=== PATIENT | female | born 1940 | race Two or more races ===

== ENCOUNTER 2022-03-15 21:38 | Inpatient (IN) | payer OTHER ==
[~2022-03-15] VITALS: Ht 152.4 cm; Wt 84.4 kg
[~2022-03-15 21:38] MED LIST: DOLOGEN CAPLET1 EACH PO
[2022-03-15] MEDS ORDERED: METFORMIN HCL500 M3 PO (21:54)
[2022-03-15] MEDS ORDERED: COZAAR100 MG PO (21:55)
[2022-03-15] MEDS ORDERED: NAMENDA10 MG PO (21:56)
[2022-03-15] MEDS ORDERED: GRALISE600 MG PO (21:56)
[2022-03-15] MEDS ORDERED: PLAVIX75 MG PO (21:56)
[2022-03-23] MEDS ORDERED: ALENDRONATE SOD70 MG (16:26)
[2022-03-23] MEDS ORDERED: ARIPIPRAZOLE2 MG (16:26)
[2022-03-23] MEDS ORDERED: AMLODIPINE BESYL5 MG (16:27)
[2022-03-23] MEDS ORDERED: RESTORIL30 MG (16:27)
[2022-03-23] MEDS ORDERED: SIMVASTATIN40 MG (16:27)
[2022-03-23] MEDS ORDERED: LAMOTRIGINE25 M1 (16:27)
[2022-03-23] MEDS ORDERED: CARBIDOPA-LEVO1 EA10 (16:27)
[2022-03-23] MEDS ORDERED: DONEPEZIL HCL23 MG (16:27)
[2022-03-23] MEDS ORDERED: CITALOPRAM HBR40 MG (16:27)
[2022-03-23] MEDS ORDERED: BUMETANIDE0.5 MG (16:27)
[2022-03-23] MEDS ORDERED: INSULIN GL100 UNIT/3 (16:28)
[2022-04-10] MEDS ORDERED: AMIODARONE HCL200 MG NGT (12:42)
[2022-04-10] MEDS ORDERED: BUMETANIDE0.5 MG PO (12:42)
[2022-04-10] MEDS ORDERED: ARIPIPRAZOLE2 MG PO (12:42)
[2022-04-10] MEDS ORDERED: SIMVASTATIN40 MG PO (12:42)
[2022-04-10] MEDS ORDERED: COZAAR100 MG PO (12:42)
[2022-04-10] MEDS ORDERED: ELIQUIS2.5 MG PO (12:42)
[2022-04-10] MEDS ORDERED: TOPROL XL25 M1 PO (12:42)
[2022-04-10] MEDS ORDERED: NASAL MIST126 ML NASAL (12:42)
[2022-04-10] MEDS ORDERED: HUMULIN N100 UNIT/2 SUBCUTANEO ×2 (12:42)
[2022-04-10] MEDS ORDERED: RESTORIL30 MG PO (12:42)
== END 2022-04-10 13:16 | disposition home or self-care (01) | DRG 208 ==
LOC: ER 21:38 → ICU 03-16 14:10 → SEC-K 03-16 14:10 → SURH 03-16 14:10 → ICU 03-20 22:16 → MEDJ 03-30 20:19
PROVIDERS: ADMIT Internal Medicine; ATTEND Internal Medicine
PROC: BW24ZZZ Computerized Tomography (CT Scan) of Chest and Abdomen (ICD-10-PCS; 2022-03-16)
PROC: XW033E5 Introduction of Remdesivir Anti-infective into Peripheral Vein, Percutaneous Approach, New Technology Group 5 (ICD-10-PCS; 2022-03-17)
PROC: 02HV33Z Insertion of Infusion Device into Superior Vena Cava, Percutaneous Approach (ICD-10-PCS; 2022-03-17)
PROC: 5A1945Z Respiratory Ventilation, 24-96 Consecutive Hours (ICD-10-PCS; principal; 2022-03-19)
PROC: 0BH17EZ Insertion of Endotracheal Airway into Trachea, Via Natural or Artificial Opening (ICD-10-PCS; 2022-03-19)
PROC: B24BZZZ Ultrasonography of Heart with Aorta (ICD-10-PCS; 2022-03-19)
PROC: 4A12X4Z Monitoring of Cardiac Electrical Activity, External Approach (ICD-10-PCS; 2022-03-19)
PROC: 30233N1 Transfusion of Nonautologous Red Blood Cells into Peripheral Vein, Percutaneous Approach (ICD-10-PCS; 2022-03-20)
PROC: 0DH64UZ Insertion of Feeding Device into Stomach, Percutaneous Endoscopic Approach (ICD-10-PCS; 2022-04-07)
DX: U07.1 COVID-19 (principal); J15.0 Pneumonia due to Klebsiella pneumoniae; J96.00 Acute respiratory failure, unspecified whether with hypoxia or hypercapnia; J69.0 Pneumonitis due to inhalation of food and vomit; N39.0 Urinary tract infection, site not specified; I50.20 Unspecified systolic (congestive) heart failure; E46 Unspecified protein-calorie malnutrition; B96.1 Klebsiella pneumoniae [K. pneumoniae] as the cause of diseases classified elsewhere; M24.412 Recurrent dislocation, left shoulder; R13.19 Other dysphagia; Z74.01 Bed confinement status; Z79.4 Long term (current) use of insulin; G30.8 Other Alzheimer's disease; F02.80 Dementia in other diseases classified elsewhere, unspecified severity, without behavioral disturbance, psychotic disturbance, mood disturbance, and anxiety; I48.91 Unspecified atrial fibrillation; I11.0 Hypertensive heart disease with heart failure; D64.9 Anemia, unspecified; E11.65 Type 2 diabetes mellitus with hyperglycemia; G20 Parkinson's disease

== ENCOUNTER 2022-05-09 11:08 | Inpatient (IN) | payer OTHER ==
[~2022-05-09] VITALS: Ht 152.4 cm; Wt 72.6 kg
[~2022-05-09 11:08] MED LIST changes: +ALENDRONATE SOD70 MG; +AMIODARONE HCL200 MG NGT; +AMLODIPINE BESYL5 MG; +ARIPIPRAZOLE2 MG; +ARIPIPRAZOLE2 MG PO; +BUMETANIDE0.5 MG; +BUMETANIDE0.5 MG PO; +CARBIDOPA-LEVO1 EA10; +CITALOPRAM HBR40 MG; +COZAAR100 MG PO; +DONEPEZIL HCL23 MG; +ELIQUIS2.5 MG PO; +GRALISE600 MG PO; +HUMULIN N100 UNIT/2 SUBCUTANEO; +INSULIN GL100 UNIT/3; +LAMOTRIGINE25 M1; +METFORMIN HCL500 M3 PO; +NAMENDA10 MG PO; +NASAL MIST126 ML NASAL; +PLAVIX75 MG PO; +RESTORIL30 MG; +RESTORIL30 MG PO; +SIMVASTATIN40 MG; +SIMVASTATIN40 MG PO; +TOPROL XL25 M1 PO
== END 2022-05-14 21:42 | disposition home or self-care (01) | DRG 690 ==
LOC: ER 11:08 → MEDI 19:24 → MEDJ 19:24 → MEDI 05-10 00:44 → MEDJ 05-11 09:44
PROVIDERS: ADMIT Internal Medicine; ATTEND Internal Medicine
PROC: 02HV33Z Insertion of Infusion Device into Superior Vena Cava, Percutaneous Approach (ICD-10-PCS; 2022-05-10)
PROC: 0DH63UZ Insertion of Feeding Device into Stomach, Percutaneous Approach (ICD-10-PCS; principal; 2022-05-12)
DX: N39.0 Urinary tract infection, site not specified (principal); K94.23 Gastrostomy malfunction; I50.20 Unspecified systolic (congestive) heart failure; E46 Unspecified protein-calorie malnutrition; T83.511A Infection and inflammatory reaction due to indwelling urethral catheter, initial encounter; B96.89 Other specified bacterial agents as the cause of diseases classified elsewhere; E87.6 Hypokalemia; R13.19 Other dysphagia; I48.91 Unspecified atrial fibrillation; D64.9 Anemia, unspecified; Z74.01 Bed confinement status; G30.9 Alzheimer's disease, unspecified; F02.80 Dementia in other diseases classified elsewhere, unspecified severity, without behavioral disturbance, psychotic disturbance, mood disturbance, and anxiety; I11.0 Hypertensive heart disease with heart failure; Z20.822 Contact with and (suspected) exposure to COVID-19

== ENCOUNTER 2022-07-26 21:37 | Inpatient (IN) | payer OTHER ==
[~2022-07-26] VITALS: Ht 152.4 cm; Wt 84.4 kg
[2022-07-26] MEDS ORDERED: NAMENDA XR28 MG PO (21:59)
[2022-07-26] MEDS ORDERED: CELEXA40 MG PO (21:59)
[2022-07-26] MEDS ORDERED: SINEMET 25-1001 EACH PO (21:59)
[2022-07-26] MEDS ORDERED: BUMETANIDE0.5 MG PO (22:00)
[2022-07-26] MEDS ORDERED: ARIPIPRAZOLE2 MG PO (22:01)
[2022-07-26] MEDS ORDERED: KEPPRA500 MG (22:01)
[2022-07-26] MEDS ORDERED: HUMULIN N100 UNIT/2 (22:02)
--- NOTE | 2022-07-26 22:04 | NUR ---
PTE LETARGICA EN AMBULANCIA EN COMPANIA DE FAMILIAR. FAMILOIAR REFIERE INFECCION DE ORINA. PTE CANALIZADA EN AMBULANCIA Y CON TIM DE GOPAL SE ONSERVA 300CC DE [place] TURBIO. SE MIDEN S/V Y SE UBICA.
--- NOTE | 2022-07-27 00:59 | NUR ---
PTE EVALUADO POR DR. CALZADA SE EJECUTA ORDEN MEDICA SE SARAH MUESTRA BAJO MEDIDAS ASEPTICAS Y SE CANLIZA ANGIO #22 SE OBSERVA VEE EDEMAS Y ENROJECIMIENTO. SE OREINTA PTE/FAMILIAR REFIEREN ENTENDER
--- NOTE | 2022-07-27 01:33 | NUR ---
SE SUCCIONA PTE ELIMINADO SECRESIONES, SE OBSERVA PTE RESPIRANDO MEJOR.
--- NOTE | 2022-07-27 06:36 | NUR ---
PTE ALERTA CON RESPUESTA A DOLOR EN CAMA CON BARANDAS ELEBADAS POR SEGURIDAD EN COMPANIA DE FAMILIAR. CONECTADA A MONITOR CARDIACO CON CANULA NASAL A 3L POR MINUTO. FAMILIAR REFIERE PTE TIENE HOMBRO MARAL DISLOCADO DESDE FEBRERO. SE OBSERVA EDEMA EN EXTREMIDADES SUPERIORES E INFERIORES. TIENE SONDA URINARIA A GRABEDAD DEL HOGAR CON EGRESO DE 600 ML. PTE CON PEG CON BENDAJE LIMPIO Y SECO. SE OBSERVA ULCERA EN PIE IZQ CON PARCHO Y FISTULA EN AMARA. PTE EN ESPERA DE CONSULTA DE DR CHAN.
--- NOTE | 2022-07-27 07:07 | NUR ---
SE RECIBE PTE FEMINA EN COMPANIA DE SUHIJA, DURMIENDO AL MOMENTO, SE OBSERVA CON BUEN PATRON RESPIRATORIO. SE REALIZA WILL DE S/V Y SE ORIENTA A FAMILIAR SOBRE PROCESO A SEGUIR. PTE PENDIENTE A CONSULTA.
--- NOTE | 2022-07-27 15:00 | NUR ---
SE RECIBE PACIENTE LETARGICA EN CAMA CON BARANDAS ELEVADAS POR SEGURIDAD EN COMPANIA DE CUIDADOR. CONECTADA A MONITOR CARDIACO, OXIMETRIA DE PULSO Y ASISTIDA POR SARAH CANULA NASAL A 2TLS. RECIBIENDO IV'S 0.9NSS BAJANDO A 50ML/HR POR VENOPUNCION EN BRAZO DERECHO AREA VEE DE EDEMA Y ERITEMA. SONDA URINARIA DRENANDO A GRAVEDAD 500ML DE ORINA COLOR AMARILLO INTENSO CONECTADO A IRRIGACION CONTINUA EL CUAL PACIENTE TIENE DESDE RODAS HOGAR. SE OBSERVA VENDAJE EN ROCIO MANZANARES. PENDIENTE CONSULTA CON DR.ESTEBAN OSORIO. SE EDUCA A CUIDADORA SOBRE CONTINUIDA DE [place] MEDICO, REFIERE COMPRENDER. SE MANTIENE EN OBSERVACION POR CAMBIOS EN CONDICION MEDICA.
[2022-07-29] MEDS ORDERED: LOSARTAN POTAS100 MG (15:32)
[2022-07-29] MEDS ORDERED: RESTORIL30 MG (15:33)
[2022-07-29] MEDS ORDERED: SIMVASTATIN40 MG (15:33)
[2022-07-29] MEDS ORDERED: ALENDRONATE SOD70 MG (15:33)
[2022-07-29] MEDS ORDERED: AMLODIPINE BESYL5 MG (15:33)
[2022-07-29] MEDS ORDERED: DONEPEZIL HCL23 MG (15:33)
[2022-07-29] MEDS ORDERED: LAMOTRIGINE25 M1 (15:34)
== END 2022-08-06 19:31 | disposition home or self-care (01) | DRG 193 ==
LOC: ER 21:37 → ICU-2 07-27 17:39 → SEC-K 07-29 10:03 → MEDJ 07-29 10:16 → MEDI 07-29 11:02
PROVIDERS: ADMIT Internal Medicine; ATTEND Internal Medicine
PROC: BB24ZZZ Computerized Tomography (CT Scan) of Bilateral Lungs (ICD-10-PCS; principal; 2022-07-27)
PROC: B246ZZZ Ultrasonography of Right and Left Heart (ICD-10-PCS; 2022-07-27)
PROC: 3E0F7SF Introduction of Other Gas into Respiratory Tract, Via Natural or Artificial Opening (ICD-10-PCS; 2022-07-27)
PROC: 4A12X4Z Monitoring of Cardiac Electrical Activity, External Approach (ICD-10-PCS; 2022-07-27)
PROC: 3E0F7GC Introduction of Other Therapeutic Substance into Respiratory Tract, Via Natural or Artificial Opening (ICD-10-PCS; 2022-07-27)
PROC: 02HV33Z Insertion of Infusion Device into Superior Vena Cava, Percutaneous Approach (ICD-10-PCS; 2022-07-28)
PROC: 8E0ZXY6 Isolation (ICD-10-PCS; 2022-07-30)
PROC: 0DH63UZ Insertion of Feeding Device into Stomach, Percutaneous Approach (ICD-10-PCS; 2022-08-04)
DX: J18.8 Other pneumonia, unspecified organism (principal); I21.A1 Myocardial infarction type 2; L89.623 Pressure ulcer of left heel, stage 3; I50.33 Acute on chronic diastolic (congestive) heart failure; B37.49 Other urogenital candidiasis; J91.8 Pleural effusion in other conditions classified elsewhere; I31.39 Other pericardial effusion (noninflammatory); E87.1 Hypo-osmolality and hyponatremia; E46 Unspecified protein-calorie malnutrition; K94.23 Gastrostomy malfunction; I48.0 Paroxysmal atrial fibrillation; R50.9 Fever, unspecified; I11.0 Hypertensive heart disease with heart failure; E11.65 Type 2 diabetes mellitus with hyperglycemia; I27.20 Pulmonary hypertension, unspecified; L89.620 Pressure ulcer of left heel, unstageable; D64.89 Other specified anemias; E87.6 Hypokalemia; G30.8 Other Alzheimer's disease; F02.80 Dementia in other diseases classified elsewhere, unspecified severity, without behavioral disturbance, psychotic disturbance, mood disturbance, and anxiety; R13.19 Other dysphagia; Z74.01 Bed confinement status; Z88.6 Allergy status to analgesic agent; Z79.4 Long term (current) use of insulin; Z79.01 Long term (current) use of anticoagulants; L08.89 Other specified local infections of the skin and subcutaneous tissue; B96.5 Pseudomonas (aeruginosa) (mallei) (pseudomallei) as the cause of diseases classified elsewhere; B95.2 Enterococcus as the cause of diseases classified elsewhere; B96.89 Other specified bacterial agents as the cause of diseases classified elsewhere

== ENCOUNTER 2022-08-25 13:05 | Emergency (ER) | payer OTHER ==
[~2022-08-25] VITALS: Ht 167.6 cm; Wt 84.4 kg
[~2022-08-25 13:05] MED LIST changes: +CELEXA40 MG PO; +HUMULIN N100 UNIT/2; +KEPPRA500 MG; +LOSARTAN POTAS100 MG; +NAMENDA XR28 MG PO; +SINEMET 25-1001 EACH PO
== END 2022-08-26 00:28 | disposition home or self-care (01) ==
LOC: ER 13:05
DX: K94.23 Gastrostomy malfunction (principal); Z88.6 Allergy status to analgesic agent; K59.00 Constipation, unspecified

== ENCOUNTER 2022-09-24 11:29 | Emergency (ER) | payer OTHER ==
[~2022-09-24] VITALS: Ht 165.1 cm; Wt 84.4 kg
== END 2022-09-24 20:45 | disposition home or self-care (01) ==
LOC: ER 11:29
DX: K94.23 Gastrostomy malfunction (principal); I10 Essential (primary) hypertension; Z88.6 Allergy status to analgesic agent

== ENCOUNTER 2023-04-12 20:59 | Inpatient (IN) | payer OTHER ==
[~2023-04-12] VITALS: Ht 152.4 cm; Wt 113.4 kg
[2023-04-12] MEDS ORDERED: NOREPINEPHRINE BITARTRATE 4 MG in DEXTROSE 5 % IN WATER 250 ML IV SCH (21:15)
[2023-04-12] MEDS ORDERED: TOPROL XL25 M1 PO (21:22)
[2023-04-12] MEDS ORDERED: ELIQUIS2.5 MG PO (21:22)
[2023-04-12] MEDS ORDERED: AMIODARONE HCL100 MG PO (21:23)
[2023-04-12] MEDS ORDERED: BUMETANIDE0.25 MG/1 (21:24)
[2023-04-12] MEDS ORDERED: KEPPRA100 MG/1 M PO (21:25)
[2023-04-12] MEDS ORDERED: SIMVASTATIN5 MG PO (21:25)
[2023-04-12] MEDS ORDERED: ARICEPT5 MG PO (21:26)
[2023-04-12] MEDS ORDERED: 0.9 % SODIUM CHLORIDE 1,000 ML IV SCH (21:30)
[2023-04-12] MEDS ORDERED: CEFTRIAXONE SODIUM 1,000 MG VIAL IV ONE (21:30)
[2023-04-12 22:04] LABS: HEMATOCRIT 34.6 % (36.0-45.00); HEMOGLOBIN 11.4 g/dL (12.0-15.00); MEAN CELL VOLUME 85.5 fL (80.00-100.00); MEAN CORPUSCULAR HEMOGLOBIN 28.1 pg (27.00-32.0); MEAN CORPUSCULAR HGB CONC 32.9 g/dl (32.0-36.0); PLATELET COUNT 168 K/uL (150-450); RED BLOOD COUNT 4.05 M/uL (4.00-6.00)
[2023-04-12 22:07] LABS: PH,URINE 5.5 (5.0-8.0); URINE APPEARANCE Cloudy; URINE BILIRRUBIN Negative (NEGATIVE); URINE BLOOD Trace; URINE COLOR Yellow; URINE GLUCOSE Negative (NEGATIVE); URINE LEUKOCYTE Large; URINE NITRATE Negative; URINE PROTEIN Negative (NEGATIVE); URINE UROBILINOGEN 0.2 E.U./dl
[2023-04-12 22:08] LABS: URINE WBC 1129.2 uL (0.0-23.2)
[2023-04-12 22:13] LABS: URINE BACTERIA > 9821.5 uL (0.0-1933); URINE EPITHELIAL CELLS 0.6 uL (0.0-38.8)
[2023-04-12 22:17] LABS: INR 1.29; PARTIAL THROMBOPLASTIN TIME 32.4 SECONDS (22.0-34.0); PROTHROMBIN TIME 13.3 SECONDS (9.0-11.5)
[2023-04-12 22:46] LABS: CALCIUM 9.6 mg/dL (8.5-10.1); CREATININE SERUM 0.69 mg/dL (0.55-1.02); GFR 81.05; POTASSIUM 3.94 mEq/L (3.5-5.1)
[2023-04-12 22:50] LABS: DIGOXIN 0.1 ng/ml (0.8-2.0)
[2023-04-13] MEDS ORDERED: CEFTRIAXONE SODIUM 2,000 MG in DEXTROSE 5 % IN WATER 100 ML IV SCH (11:50)
[2023-04-13] MEDS ORDERED: APIXABAN 2.5 MG TABLET PO SCH (11:51)
[2023-04-13] MEDS ORDERED: CARBIDOPA/LEVODOPA 25/100 UDTAB NGT SCH (11:52)
[2023-04-13] MEDS ORDERED: GABAPENTIN 600 MG TABLET PO SCH (11:53)
[2023-04-13] MEDS ORDERED: AMLODIPINE BESYLATE 5 MG TABLET PO SCH (11:53)
[2023-04-13] MEDS ORDERED: BUMETANIDE 0.5 MG TABLET PO SCH (11:54)
[2023-04-13] MEDS ORDERED: METOPROLOL SUCCINATE 25 MG TAB.SR.24H PO SCH (11:55)
[2023-04-13] MEDS ORDERED: SIMVASTATIN 40 MG TABLET PO SCH (11:56)
[2023-04-13] MEDS ORDERED: FAMOTIDINE/PF 20 MG in 0.9 % SODIUM CHLORIDE 8 ML IV PUSH SCH (11:58)
[2023-04-13] MEDS ORDERED: DEXTROSE 50 % IN WATER 0.5 G/ML DISP.SYRIN IV PRN (12:00)
[2023-04-13] MEDS ORDERED: INSULIN LISPRO 1,000 UNIT/10 ML UNITS SUBCUTANEO PRN (12:00)
[2023-04-13 13:19] LABS: CKMB 5.6 NG/ML (0.5-3.6)
[2023-04-13] MEDS ORDERED: MEROPENEM 500 MG/VIAL VIAL IV SCH (14:08)
[2023-04-13] MEDS ORDERED: TEMAZEPAM 15 MG CAPSULE PO SCH (21:00)
[2023-04-13 21:19] LABS: CKMB 7.3 NG/ML (0.5-3.6)
[2023-04-14 05:06] LABS: HEMATOCRIT 34.9 % (36.0-45.00); HEMOGLOBIN 11.2 g/dL (12.0-15.00); MEAN CELL VOLUME 85.3 fL (80.00-100.00); MEAN CORPUSCULAR HEMOGLOBIN 27.5 pg (27.00-32.0); MEAN CORPUSCULAR HGB CONC 32.2 g/dl (32.0-36.0); PLATELET COUNT 179 K/uL (150-450); RED BLOOD COUNT 4.09 M/uL (4.00-6.00)
[2023-04-14 05:10] LABS: ERYTHROCYTE SEDIMENTATION RATE 67 mm/hr
[2023-04-14 05:20] LABS: CKMB 7.4 NG/ML (0.5-3.6)
[2023-04-14 05:35] LABS: ALBUMIN 2.6 gm/dL (3.4-5.0); BILIRUBIN TOTAL 0.43 mg/dL (0.3-1.2); C-REACTIVE PROTEIN 5.53 MG/DL (0.00-0.29); CALCIUM 9.6 mg/dL (8.5-10.1); CHOL HDL RATIO 1.9 (0-5.0); CREATININE SERUM 0.66 mg/dL (0.55-1.02); GFR 85.32; GLOBULINA 3.9 G/DL (2.4-3.5); MAGNESIUM 1.9 mg/dL (1.8-2.4); PHOSPHOROUS 2.8 mg/dL (2.5-4.9); POTASSIUM 3.3 mEq/L (3.5-5.1); TOTAL PROTEIN 6.5 gm/dL (6.4-8.2)
[2023-04-14] MEDS ORDERED: POTASSIUM CHLORIDE 20MEQ/100ML H2O PB IV ONE (09:45)
[2023-04-14] MEDS ORDERED: LevETIRAcetam 500 MG/5 ML VIAL IV SCH (10:17)
[2023-04-14] MEDS ORDERED: TEMAZEPAM 15 MG CAPSULE PO SCH (21:00)
[2023-04-15 06:32] LABS: HEMATOCRIT 33.8 % (36.0-45.00); HEMOGLOBIN 11.2 g/dL (12.0-15.00); MEAN CELL VOLUME 84.5 fL (80.00-100.00); MEAN CORPUSCULAR HEMOGLOBIN 27.9 pg (27.00-32.0); MEAN CORPUSCULAR HGB CONC 33.1 g/dl (32.0-36.0); PLATELET COUNT 189 K/uL (150-450); RED CELL DISTRIBUTION WIDTH 15.3 % (11.5-14.5)
[2023-04-15 07:14] LABS: ALBUMIN 2.8 gm/dL (3.4-5.0); BILIRUBIN TOTAL 0.53 mg/dL (0.3-1.2); CALCIUM 9.5 mg/dL (8.5-10.1); CREATININE SERUM 0.62 mg/dL (0.55-1.02); GFR 91.7; GLOBULINA 3.8 G/DL (2.4-3.5); MAGNESIUM 2.2 mg/dL (1.8-2.4); PHOSPHOROUS 2.9 mg/dL (2.5-4.9); POTASSIUM 3.35 mEq/L (3.5-5.1); TOTAL PROTEIN 6.6 gm/dL (6.4-8.2)
[2023-04-15] MEDS ORDERED: CIPROFLOXACIN IN 5 % DEXTROSE 400 MG/200 ML PIGGYBAG IV SCH (21:00)
[2023-04-16 07:33] LABS: HEMATOCRIT 29.5 % (36.0-45.00); HEMOGLOBIN 9.7 g/dL (12.0-15.00); MEAN CORPUSCULAR HEMOGLOBIN 28.1 pg (27.00-32.0); MEAN CORPUSCULAR HGB CONC 33.1 g/dl (32.0-36.0); PLATELET COUNT 153 K/uL (150-450); RED BLOOD COUNT 3.47 M/uL (4.00-6.00); RED CELL DISTRIBUTION WIDTH 15.4 % (11.5-14.5)
[2023-04-16 07:37] LABS: ALBUMIN 2.2 gm/dL (3.4-5.0); BILIRUBIN TOTAL 0.47 mg/dL (0.3-1.2); CALCIUM 8.6 mg/dL (8.5-10.1); CREATININE SERUM 0.63 mg/dL (0.55-1.02); GFR 90.03; GLOBULINA 3.1 G/DL (2.4-3.5); TOTAL PROTEIN 5.3 gm/dL (6.4-8.2)
[2023-04-16 08:45] LABS: POTASSIUM 2.97 mEq/L (3.5-5.1)
[2023-04-17] MEDS ORDERED: POTASSIUM CHLORIDE IN WATER 100 ML IV SCH (01:00)
[2023-04-17 07:30] LABS: ALBUMIN 2.1 gm/dL (3.4-5.0); CALCIUM 8.3 mg/dL (8.5-10.1); CREATININE SERUM 0.44 mg/dL (0.55-1.02); GFR 136.23; POTASSIUM 3.51 mEq/L (3.5-5.1)
[2023-04-17 07:59] LABS: PHOSPHOROUS 1.4 mg/dL (2.5-4.9)
[2023-04-17] MEDS ORDERED: POTASSIUM PHOS,M-BASIC-D-BASIC 3 MM/ML VIAL IV SCH ×2 (13:00→18:00)
[2023-04-18] MEDS ORDERED: SODIUM CHLORIDE 0.45 % 1,000 ML IV SCH (06:15)
[2023-04-18 06:24] LABS: URINE APPEARANCE Clear; URINE BILIRRUBIN Negative (NEGATIVE); URINE BLOOD Negative; URINE COLOR Yellow; URINE GLUCOSE Negative (NEGATIVE); URINE LEUKOCYTE Negative; URINE NITRATE Negative; URINE PROTEIN Negative (NEGATIVE); URINE UROBILINOGEN 0.2 E.U./dl
[2023-04-18 06:28] LABS: URINE RBC 13.3 uL (0.0-20.8); URINE WBC 3.7 uL (0.0-23.2)
[2023-04-18 06:32] LABS: URINE BACTERIA 0 uL (0.0-1933)
[2023-04-18 07:03] LABS: ALBUMIN 2.1 gm/dL (3.4-5.0); BILIRUBIN TOTAL 0.59 mg/dL (0.3-1.2); CREATININE SERUM 0.46 mg/dL (0.55-1.02); GFR 129.42; MAGNESIUM 1.8 mg/dL (1.8-2.4); POTASSIUM 3.65 mEq/L (3.5-5.1); TOTAL PROTEIN 5.1 gm/dL (6.4-8.2)
[2023-04-19 05:17] LABS: HEMATOCRIT 32.1 % (36.0-45.00); MEAN CELL VOLUME 84.1 fL (80.00-100.00); MEAN CORPUSCULAR HGB CONC 32.8 g/dl (32.0-36.0); RED BLOOD COUNT 3.81 M/uL (4.00-6.00); RED CELL DISTRIBUTION WIDTH 15.2 % (11.5-14.5)
[2023-04-19 05:25] LABS: HEMOGLOBIN 10.5 g/dL (12.0-15.00); MEAN CORPUSCULAR HEMOGLOBIN 27.5 pg (27.00-32.0); PLATELET COUNT 118 K/uL (150-450)
[2023-04-19] MEDS ORDERED: POTASSIUM PHOS,M-BASIC-D-BASIC 45mM/15ml VIAL IV SCH (12:00)
[2023-04-19 12:48] LABS: ALBUMIN 2.1 gm/dL (3.4-5.0); BILIRUBIN TOTAL 0.84 mg/dL (0.3-1.2); CALCIUM 8.1 mg/dL (8.5-10.1); CREATININE SERUM 0.36 mg/dL (0.55-1.02); GFR 171.73; GLOBULINA 3.3 G/DL (2.4-3.5); POTASSIUM 3.8 mEq/L (3.5-5.1); TOTAL PROTEIN 5.4 gm/dL (6.4-8.2)
[2023-04-19 13:18] LABS: PHOSPHOROUS 1.3 mg/dL (2.5-4.9)
[2023-04-19] MEDS ORDERED: MEROPENEM 500 MG/VIAL VIAL IV SCH (17:00)
[2023-04-19 23:17] LABS: URINE APPEARANCE Clear; URINE BILIRRUBIN Negative (NEGATIVE); URINE BLOOD NHT; URINE COLOR Yellow; URINE GLUCOSE Negative (NEGATIVE); URINE LEUKOCYTE Trace; URINE NITRATE Negative; URINE PROTEIN 30 (NEGATIVE)
[2023-04-19 23:20] LABS: URINE BACTERIA 11.3 uL (0.0-1933); URINE EPITHELIAL CELLS 8.1 uL (0.0-38.8); URINE RBC 54.3 uL (0.0-20.8); URINE WBC 34.7 uL (0.0-23.2)
[2023-04-20 06:10] LABS: HEMATOCRIT 28.7 % (36.0-45.00); HEMOGLOBIN 9.4 g/dL (12.0-15.00); MEAN CELL VOLUME 84.7 fL (80.00-100.00); MEAN CORPUSCULAR HEMOGLOBIN 27.8 pg (27.00-32.0); MEAN CORPUSCULAR HGB CONC 32.8 g/dl (32.0-36.0); RED BLOOD COUNT 3.39 M/uL (4.00-6.00); RED CELL DISTRIBUTION WIDTH 15.1 % (11.5-14.5)
[2023-04-20 06:26] LABS: PLATELET COUNT 111 K/uL (150-450)
[2023-04-20 07:05] LABS: ALBUMIN 1.7 gm/dL (3.4-5.0); BILIRUBIN TOTAL 0.7 mg/dL (0.3-1.2); CALCIUM 7.7 mg/dL (8.5-10.1); CREATININE SERUM 0.4 mg/dL (0.55-1.02); GFR 152.07; GLOBULINA 2.8 G/DL (2.4-3.5); MAGNESIUM 1.8 mg/dL (1.8-2.4); POTASSIUM 3.75 mEq/L (3.5-5.1); TOTAL PROTEIN 4.5 gm/dL (6.4-8.2)
[2023-04-20 08:13] LABS: PHOSPHOROUS 1.9 mg/dL (2.5-4.9)
[2023-04-20] MEDS ORDERED: POTASSIUM PHOS,M-BASIC-D-BASIC 45mM/15ml VIAL IV SCH (13:00)
[2023-04-20] MEDS ORDERED: VANCOMYCIN HCL 1,000 MG VIAL IV SCH (17:00)
[2023-04-22] MEDS ORDERED: TEMAZEPAM 15 MG CAPSULE PO SCH (21:00)
[2023-04-23 15:34] LABS: HEMATOCRIT 28.3 % (36.0-45.00); HEMOGLOBIN 9.3 g/dL (12.0-15.00); MEAN CELL VOLUME 85.1 fL (80.00-100.00); MEAN CORPUSCULAR HEMOGLOBIN 28.1 pg (27.00-32.0); RED BLOOD COUNT 3.33 M/uL (4.00-6.00); RED CELL DISTRIBUTION WIDTH 15.2 % (11.5-14.5)
[2023-04-23 15:41] LABS: PLATELET COUNT 101 K/uL (150-450)
[2023-04-23 16:09] LABS: ALBUMIN 1.7 gm/dL (3.4-5.0); BILIRUBIN TOTAL 0.68 mg/dL (0.3-1.2); CALCIUM 8.2 mg/dL (8.5-10.1); CREATININE SERUM 0.3 mg/dL (0.55-1.02); GFR 211.94; GLOBULINA 3.2 G/DL (2.4-3.5); MAGNESIUM 1.8 mg/dL (1.8-2.4); PHOSPHOROUS 2.4 mg/dL (2.5-4.9); TOTAL PROTEIN 4.9 gm/dL (6.4-8.2)
[2023-04-23 16:22] LABS: C-REACTIVE PROTEIN 13.2 MG/DL (0.00-0.29); POTASSIUM 4.39 mEq/L (3.5-5.1)
[2023-04-25 07:00] LABS: HEMATOCRIT 27.4 % (36.0-45.00); HEMOGLOBIN 9.2 g/dL (12.0-15.00); MEAN CELL VOLUME 82.7 fL (80.00-100.00); MEAN CORPUSCULAR HEMOGLOBIN 27.7 pg (27.00-32.0); MEAN CORPUSCULAR HGB CONC 33.5 g/dl (32.0-36.0); PLATELET COUNT 184 K/uL (150-450); RED BLOOD COUNT 3.31 M/uL (4.00-6.00); RED CELL DISTRIBUTION WIDTH 14.2 % (11.5-14.5)
[2023-04-25 07:11] LABS: ALBUMIN 1.6 gm/dL (3.4-5.0); BILIRUBIN TOTAL 0.49 mg/dL (0.3-1.2); CALCIUM 8.3 mg/dL (8.5-10.1); CREATININE SERUM 0.33 mg/dL (0.55-1.02); GFR 189.86; GLOBULINA 3.4 G/DL (2.4-3.5); PHOSPHOROUS 2.2 mg/dL (2.5-4.9); POTASSIUM 4.07 mEq/L (3.5-5.1)
[2023-04-25] MEDS ORDERED: POTASSIUM PHOS,M-BASIC-D-BASIC 18 MM in 0.9 % SODIUM CHLORIDE 250 ML IV ONE (12:00)
[2023-04-26 06:55] LABS: ALBUMIN 1.5 gm/dL (3.4-5.0); BILIRUBIN TOTAL 0.5 mg/dL (0.3-1.2); CALCIUM 8.4 mg/dL (8.5-10.1); GLOBULINA 3.3 G/DL (2.4-3.5); MAGNESIUM 1.6 mg/dL (1.8-2.4); PHOSPHOROUS 2.9 mg/dL (2.5-4.9); POTASSIUM 4.03 mEq/L (3.5-5.1); TOTAL PROTEIN 4.8 gm/dL (6.4-8.2)
[2023-04-26 06:58] LABS: C-REACTIVE PROTEIN 13.6 MG/DL (0.00-0.29); CREATININE SERUM 0.29 mg/dL (0.55-1.02); FERRITIN 368.6 NG/ML (8-252); GFR 220.39
[2023-04-26 08:21] LABS: PROCALCITONIN 0.221 ng/ml (0.020-0.080)
[2023-04-26] MEDS ORDERED: MAGNESIUM SULFATE 1,000 MG in 0.9 % SODIUM CHLORIDE 50 ML IV ONE (10:15)
[2023-04-26 14:29] LABS: HEMATOCRIT 29.3 % (36.0-45.00); HEMOGLOBIN 9.6 g/dL (12.0-15.00); MEAN CELL VOLUME 84.7 fL (80.00-100.00); MEAN CORPUSCULAR HEMOGLOBIN 27.9 pg (27.00-32.0); PLATELET COUNT 187 K/uL (150-450); RED BLOOD COUNT 3.45 M/uL (4.00-6.00); RED CELL DISTRIBUTION WIDTH 14.6 % (11.5-14.5)
[2023-04-26] MEDS ORDERED: AMINO ACIDS/PROTEIN HYDROLYS 30 ML BLIST.PACK NGT SCH (20:13)
[2023-04-27 10:11] LABS: CA 125 78.8 U/mL (0.0-38.1)
[2023-04-27] MEDS ORDERED: SOD FERRIC GLUC COMPLX/SUCROSE 62.5 MG/5 ML AMPUL IV SCH (12:36)
[2023-04-27] MEDS ORDERED: IOHEXOL 350 mgI/ML 50ML BOTT PO ONE (12:45)
[2023-04-27] MEDS ORDERED: levoFLOXacin IN DEXTROSE 5 % 150 ML IV SCH (17:00)
[2023-04-27] MEDS ORDERED: POLYMYXIN B SULFATE 1,667 U/ML ML IV ONE (17:00)
[2023-04-27] MEDS ORDERED: VITAMIN B COMPLEX 1 EACH PO SCH (17:00)
[2023-04-27] MEDS ORDERED: LORazepam 2 MG/ML VIAL IV ONE (21:00)
[2023-04-27] MEDS ORDERED: FUROsemide 20 MG/2 ML VIAL IV SCH (21:30)
[2023-04-28] MEDS ORDERED: POLYMYXIN B SULFATE 1,667 U/ML ML IV SCH (05:00)
[2023-04-28] MEDS ORDERED: LevETIRAcetam 100 MG/1 ML LIQUIDO PO SCH (21:00)
[2023-04-28] MEDS ORDERED: LORazepam 2 MG/ML VIAL IV ONE (22:15)
[2023-04-29 05:56] LABS: ALBUMIN 1.5 gm/dL (3.4-5.0); BILIRUBIN TOTAL 0.68 mg/dL (0.3-1.2); CALCIUM 8.2 mg/dL (8.5-10.1); CREATININE SERUM 0.39 mg/dL (0.55-1.02); GFR 156.57; GLOBULINA 3.5 G/DL (2.4-3.5); POTASSIUM 3.51 mEq/L (3.5-5.1)
[2023-04-29] MEDS ORDERED: IOHEXOL 350 mgI/ML 50ML BOTT PO ONE (08:00)
[2023-04-29] MEDS ORDERED: LANSOPRAZOLE 30 MG CAPSULE NGT SCH (09:00)
[2023-04-29] MEDS ORDERED: Cyanocobalamin/Mecobalamin 1 TAB.SL SL SCH (11:02)
[2023-04-29] MEDS ORDERED: LORazepam 2 MG/ML VIAL IV ONE (21:00)
[2023-04-29] MEDS ORDERED: LevETIRAcetam 500 MG/5 ML VIAL IV SCH (21:45)
[2023-04-30] MEDS ORDERED: METOPROLOL TARTRATE 25 MG TABLET PO SCH (09:00)
[2023-04-30] MEDS ORDERED: LevETIRAcetam 500 MG/5 ML VIAL IV SCH (11:56)
[2023-04-30] MEDS ORDERED: FUROsemide 20 MG/2 ML VIAL IV SCH (13:00)
[2023-04-30] MEDS ORDERED: ALBUMIN HUMAN 100 ML VIAL IV SCH (13:00)
[2023-04-30] MEDS ORDERED: LORazepam 2 MG/ML VIAL IV SCH (21:00)
[2023-05-01 05:15] LABS: HEMATOCRIT 26.2 % (36.0-45.00); HEMOGLOBIN 8.9 g/dL (12.0-15.00); MEAN CELL VOLUME 82.8 fL (80.00-100.00); MEAN CORPUSCULAR HEMOGLOBIN 28.1 pg (27.00-32.0); PLATELET COUNT 196 K/uL (150-450); RED BLOOD COUNT 3.16 M/uL (4.00-6.00); RED CELL DISTRIBUTION WIDTH 14.1 % (11.5-14.5)
[2023-05-01 05:31] LABS: ALBUMIN 2.3 gm/dL (3.4-5.0); BILIRUBIN TOTAL 1.07 mg/dL (0.3-1.2); CALCIUM 8.2 mg/dL (8.5-10.1); CREATININE SERUM 0.59 mg/dL (0.55-1.02); GFR 97.11; TOTAL PROTEIN 5.3 gm/dL (6.4-8.2)
[2023-05-01 05:48] LABS: POTASSIUM 2.56 mEq/L (3.5-5.1)
[2023-05-01] MEDS ORDERED: LevETIRAcetam 500 MG TAB. PO SCH (09:13)
[2023-05-01] MEDS ORDERED: POTASSIUM CHLORIDE IN WATER 40 MEQ/100 ML PIGGYBAG IV SCH (09:14)
[2023-05-02 06:37] LABS: CALCIUM 9.3 mg/dL (8.5-10.1); CREATININE SERUM 0.75 mg/dL (0.55-1.02); GFR 73.62; POTASSIUM 3.07 mEq/L (3.5-5.1)
[2023-05-02] MEDS ORDERED: POTASSIUM CHLORIDE IN WATER 40 MEQ/100 ML PIGGYBAG IV SCH (10:50)
[2023-05-02] MEDS ORDERED: SODIUM CHLORIDE 0.45 % 1,000 ML IV SCH (11:00)
[2023-05-02] MEDS ORDERED: FUROsemide 20 MG/2 ML VIAL IV SCH (14:02)
[2023-05-02] MEDS ORDERED: POTASSIUM CHLORIDE IN WATER 40 MEQ/100 ML PIGGYBAG IV ONE (20:28)
[2023-05-03 06:59] LABS: ALBUMIN 2.8 gm/dL (3.4-5.0); BILIRUBIN TOTAL 1.43 mg/dL (0.3-1.2); CALCIUM 9.1 mg/dL (8.5-10.1); CREATININE SERUM 0.97 mg/dL (0.55-1.02); GFR 54.71; GLOBULINA 2.9 G/DL (2.4-3.5); POTASSIUM 3.93 mEq/L (3.5-5.1); TOTAL PROTEIN 5.7 gm/dL (6.4-8.2)
[2023-05-03 07:04] LABS: PHOSPHOROUS 2.6 mg/dL (2.5-4.9)
[2023-05-03 07:32] LABS: HEMATOCRIT 26.7 % (36.0-45.00); MEAN CELL VOLUME 81.9 fL (80.00-100.00); MEAN CORPUSCULAR HGB CONC 32.7 g/dl (32.0-36.0); PLATELET COUNT 237 K/uL (150-450); RED BLOOD COUNT 3.26 M/uL (4.00-6.00); RED CELL DISTRIBUTION WIDTH 14.2 % (11.5-14.5)
[2023-05-03 07:45] LABS: HEMOGLOBIN 8.7 g/dL (12.0-15.00); MEAN CORPUSCULAR HEMOGLOBIN 26.6 pg (27.00-32.0)
[2023-05-03 07:47] LABS: C-REACTIVE PROTEIN 14.5 MG/DL (0.00-0.29)
[2023-05-03 07:48] LABS: MAGNESIUM 0.9 mg/dL (1.8-2.4)
[2023-05-03] MEDS ORDERED: FUROsemide 20 MG/2 ML VIAL IV SCH (09:30)
[2023-05-03] MEDS ORDERED: MAGNESIUM SULFATE IN WATER 4 GM/100 ML PIGGYBACK IV ONE (10:45)
[2023-05-03] MEDS ORDERED: IOHEXOL 350 mgI/ML 50ML BOTT PO ONE (17:00)
[2023-05-03] MEDS ORDERED: ANIDULAFUNGIN 100 MG VIAL IV ONE (17:00)
[2023-05-03 20:02] LABS: URINE APPEARANCE Cloudy; URINE BILIRRUBIN Negative (NEGATIVE); URINE BLOOD Moderate; URINE COLOR Yellow; URINE GLUCOSE Negative (NEGATIVE); URINE LEUKOCYTE Small; URINE NITRATE Negative
[2023-05-03 20:05] LABS: URINE BACTERIA 95.7 uL (0.0-1933); URINE EPITHELIAL CELLS 57.8 uL (0.0-38.8); URINE RBC 190.7 uL (0.0-20.8); URINE WBC 122.4 uL (0.0-23.2)
[2023-05-03 20:31] LABS: URINE PROTEIN 100 (NEGATIVE); URINE YEAST MODERATE /hpf
[2023-05-03] MEDS ORDERED: VANCOMYCIN HCL 1,000 MG VIAL IV SCH (21:00)
[2023-05-03] MEDS ORDERED: LEVALBUTEROL HCL 1.25 MG/3 ML SOLUTION IH SCH (21:30)
[2023-05-03] MEDS ORDERED: NOREPINEPHRINE BITARTRATE 8 MG in DEXTROSE 5 % IN WATER 250 ML IV SCH (23:00)
[2023-05-03] MEDS ORDERED: NOREPINEPHRINE BITARTRATE 1 MG/ML AMPUL IV ONE (23:01)
[2023-05-04] MEDS ORDERED: LEVALBUTEROL HCL 0.63 MG/3 ML SOLUTION IH SCH (01:00)
[2023-05-04 02:47] LABS: ABG PH 6.903 (7.35-7.45); ABG pCO2 187.7 mmHg (35-45); SaO2 97.6 %
[2023-05-04 02:48] LABS: BASE EXCESS -2.4 mmol/l; BICARBONATE 36.2 mmol/l (23-25); allen test SATISFACTORY; o2 100 %; puncture site RADIAL RIGHT
[2023-05-04] MEDS ORDERED: SODIUM BICARBONATE 1 MEQ/ML DISP.SYRIN 50ML IV STA (02:51)
[2023-05-04] MEDS ORDERED: SODIUM BICARBONATE 1 MEQ/ML DISP.SYRIN 50ML IV ONE (03:00)
[2023-05-04 08:44] LABS: HEMATOCRIT 29.1 % (36.0-45.00); HEMOGLOBIN 9.4 g/dL (12.0-15.00); MEAN CELL VOLUME 84.8 fL (80.00-100.00); MEAN CORPUSCULAR HEMOGLOBIN 27.4 pg (27.00-32.0); MEAN CORPUSCULAR HGB CONC 32.3 g/dl (32.0-36.0); PLATELET COUNT 347 K/uL (150-450); RED BLOOD COUNT 3.43 M/uL (4.00-6.00); RED CELL DISTRIBUTION WIDTH 14.3 % (11.5-14.5)
[2023-05-04 09:32] LABS: ALBUMIN 2.5 gm/dL (3.4-5.0); BILIRUBIN TOTAL 1.11 mg/dL (0.3-1.2); CALCIUM 9.4 mg/dL (8.5-10.1); CREATININE SERUM 1.55 mg/dL (0.55-1.02); GFR 31.85; GLOBULINA 3.1 G/DL (2.4-3.5); MAGNESIUM 2.5 mg/dL (1.8-2.4); PHOSPHOROUS 7.1 mg/dL (2.5-4.9); POTASSIUM 3.36 mEq/L (3.5-5.1); TOTAL PROTEIN 5.6 gm/dL (6.4-8.2)
[2023-05-04] MEDS ORDERED: FUROsemide 40 MG/4 ML VIAL IV SCH (13:00)
[2023-05-04] MEDS ORDERED: DOPamine 800 MG/250 ML D5W PB IV STA (13:47)
[2023-05-04] MEDS ORDERED: DOPamine 800 MG/250 ML D5W PB IV SCH (14:00)
[2023-05-04] MEDS ORDERED: DOPamine HCL IN DEXTROSE 5 % 250 ML IV SCH (14:15)
[2023-05-04] MEDS ORDERED: ANIDULAFUNGIN 100 MG VIAL IV SCH (17:00)
[2023-05-04] MEDS ORDERED: HYDROCORTISONE SODIUM SUCC/PF 100 MG VIAL IV SCH (17:00)
[2023-05-04 19:29] LABS: CKMB 12.2 NG/ML (0.5-3.6)
[2023-05-04] MEDS ORDERED: LevETIRAcetam 500 MG/5 ML VIAL IV SCH (21:00)
[2023-05-06] MEDS ORDERED: VANCOMYCIN HCL 1,000 MG VIAL IV SCH (21:00)
== END 2023-05-04 22:20 | disposition expired | DRG 871 ==
LOC: ER 20:59 → SEC-K 04-13 12:20 → MEDI 04-13 12:20
PROVIDERS: Emergency Medicine; General Practice; Internal Medicine; Internal Medicine Hematology & Oncology; Internal Medicine Infectious Disease; Internal Medicine Nephrology; ADMIT Internal Medicine; ATTEND Internal Medicine
PROC: B24BZZZ Ultrasonography of Heart with Aorta (ICD-10-PCS; principal; 2023-04-13)
PROC: BW40ZZZ Ultrasonography of Abdomen (ICD-10-PCS; 2023-04-14)
PROC: 4A12X4Z Monitoring of Cardiac Electrical Activity, External Approach (ICD-10-PCS; 2023-04-14)
PROC: BW24ZZZ Computerized Tomography (CT Scan) of Chest and Abdomen (ICD-10-PCS; 2023-04-19)
PROC: BW21ZZZ Computerized Tomography (CT Scan) of Abdomen and Pelvis (ICD-10-PCS; 2023-04-19)
PROC: 02HV33Z Insertion of Infusion Device into Superior Vena Cava, Percutaneous Approach (ICD-10-PCS; 2023-04-20)
PROC: BW24ZZZ Computerized Tomography (CT Scan) of Chest and Abdomen (ICD-10-PCS; 2023-04-27)
PROC: BW21YZZ Computerized Tomography (CT Scan) of Abdomen and Pelvis using Other Contrast (ICD-10-PCS; 2023-05-03)
PROC: 30233N1 Transfusion of Nonautologous Red Blood Cells into Peripheral Vein, Percutaneous Approach (ICD-10-PCS; 2023-05-03)
DX: A41.9 Sepsis, unspecified organism (principal); I21.A1 Myocardial infarction type 2; R65.21 Severe sepsis with septic shock; J96.02 Acute respiratory failure with hypercapnia; J15.61 Pneumonia due to Acinetobacter baumannii; N39.0 Urinary tract infection, site not specified; E87.0 Hyperosmolality and hypernatremia; K94.23 Gastrostomy malfunction; E46 Unspecified protein-calorie malnutrition; D62 Acute posthemorrhagic anemia; I13.0 Hypertensive heart and chronic kidney disease with heart failure and stage 1 through stage 4 chronic kidney disease, or unspecified chronic kidney disease; I50.20 Unspecified systolic (congestive) heart failure; Z79.4 Long term (current) use of insulin; G30.9 Alzheimer's disease, unspecified; F02.80 Dementia in other diseases classified elsewhere, unspecified severity, without behavioral disturbance, psychotic disturbance, mood disturbance, and anxiety; B96.1 Klebsiella pneumoniae [K. pneumoniae] as the cause of diseases classified elsewhere; E78.5 Hyperlipidemia, unspecified; I48.0 Paroxysmal atrial fibrillation; R13.19 Other dysphagia; E86.0 Dehydration; I25.10 Atherosclerotic heart disease of native coronary artery without angina pectoris; D63.8 Anemia in other chronic diseases classified elsewhere; K52.9 Noninfective gastroenteritis and colitis, unspecified; D69.6 Thrombocytopenia, unspecified; Z20.822 Contact with and (suspected) exposure to COVID-19; G20.A1 Parkinson's disease without dyskinesia, without mention of fluctuations; L89.159 Pressure ulcer of sacral region, unspecified stage; N18.9 Chronic kidney disease, unspecified; E11.22 Type 2 diabetes mellitus with diabetic chronic kidney disease